=== PATIENT | male | born 1960 | race Caucasian/White ===

== ENCOUNTER 2019-10-11 01:51 | Emergency (ER) | payer SELFPAY ==
[~2019-10-11] VITALS: Ht 177 cm; Wt 77.0 kg
[2019-10-11] MEDS ORDERED: NS IV 1000 ML 1,000 ML IV ONE (02:05)
[2019-10-11] MEDS ORDERED: LACTATED RINGERS 1,000 ML IV ONE (02:10)
[2019-10-11 02:16] LABS: BASOPHILS # (AUTO) 0.1 10^3/uL (0.0-0.1); BASOPHILS % (AUTO) 1 % (0-10); EOSINOPHILS % (AUTO) 0 % (0-10); HEMATOCRIT 48 % (40-54); HEMOGLOBIN 16.6 G/DL (13.3-17.7); LYMPHOCYTES # (AUTO) 1.2 X 10^3 (1.0-4.0); LYMPHOCYTES % (AUTO) 18 % (12-44); MEAN CORPUSCULAR HEMOGLOBIN 34 PG (25-34); MEAN CORPUSCULAR HGB CONC 35 G/DL (32-36); MEAN CORPUSCULAR VOLUME 96 FL (80-99); MEAN PLATELET VOLUME 10.1 FL (7.4-10.4); MONOCYTES # (AUTO) 0.6 X 10^3 (0.0-1.0); MONOCYTES % (AUTO) 9 % (0-12); NEUTROPHILS % (AUTO) 72 % (42-75); PLATELET COUNT 162 10^3/uL (130-400)
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
[2019-10-11 02:31] LABS: ALANINE AMINOTRANSFERASE 100 U/L (0-55); ALBUMIN 4.6 GM/DL (3.2-4.5); ALKALINE PHOSPHATASE 61 U/L (40-136); BILIRUBIN,TOTAL 1.4 MG/DL (0.1-1.0); BUN/CREATININE RATIO 11; CALCIUM 9.2 MG/DL (8.5-10.1); CARBON DIOXIDE 21 MMOL/L (21-32); CHLORIDE 101 MMOL/L (98-107); CREATININE SERUM 0.76 MG/DL (0.60-1.30); GFR ESTIMATED > 60; GLUCOSE 98 MG/DL (70-105); SODIUM 141 MMOL/L (135-145); TOTAL PROTEIN 7.7 GM/DL (6.4-8.2)
[2019-10-11 03:27] VITALS: BP 123/74
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
== END 2019-10-11 03:33 | disposition home or self-care (01) ==
LOC: ER 01:54
DX: S09.90XA Unspecified injury of head, initial encounter (principal); S50.12XA Contusion of left forearm, initial encounter; F10.129 Alcohol abuse with intoxication, unspecified; B35.4 Tinea corporis; J43.9 Emphysema, unspecified; F17.210 Nicotine dependence, cigarettes, uncomplicated; Y90.6 Blood alcohol level of 120-199 mg/100 ml; Y08.02XA Assault by strike by baseball bat, initial encounter
CPT/HCPCS: 36415; 70450; 72125; 73090; 80053; 80320; 83735; 85025; 96360

== ENCOUNTER 2019-10-18 05:34 | Emergency (ER) | payer SELFPAY ==
[~2019-10-18] VITALS: Ht 175 cm; Wt 77.0 kg
[2019-10-18] MEDS ORDERED: RX-GENTAMICIN SULFATE 0.3% OP 5 ML BTL OP STA (05:49)
[2019-10-18] MEDS ORDERED: FLUCONAZOLE 150 MG TABLET (ED ONLY) PO STA (05:49)
[2019-10-18] MEDS ORDERED: BETAMETHASONE/CLOTRIM CREAM (LOTRISONE) 45 GM TP ONE (05:53)
[2019-10-18] MEDS ORDERED: LIDOCAINE 1% INJ 20 ML 20 ML VIAL INJ ONE (06:00)
[2019-10-18] MEDS ORDERED: cefTRIAXone 1,000 MG/2.86 ml vial (IM ONLY) IM ONE (06:00)
[2019-10-18] MEDS ORDERED: CEPH-507 PO (06:07)
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
[2019-10-18 06:10] VITALS: BP 140/86
[2019-10-18] MEDS ORDERED: BETAMETHASONE/CLOTRIM CREAM (LOTRISONE) 45 GM TP SCH (09:00)
== END 2019-10-18 06:22 | disposition home or self-care (01) ==
LOC: EDUNIT# 05:40 → ER 05:45
DX: H10.9 Unspecified conjunctivitis (principal); L30.9 Dermatitis, unspecified; B35.4 Tinea corporis; J43.9 Emphysema, unspecified; F17.210 Nicotine dependence, cigarettes, uncomplicated
CPT/HCPCS: 96372; 99284

== ENCOUNTER 2021-08-27 09:17 | Inpatient (IN) | payer MEDICARE ==
[~2021-08-27] VITALS: Ht 175 cm; Wt 78.3 kg
[~2021-08-27 09:17] MED LIST: CEPH-507 PO
--- OUTSIDE RECORDS SUMMARY | 2021-08-27 09:21 | XMS REPORT | Clinical Summary ---
Author Author [facility] Address Unknown Phone Unavailable Care Team Providers Care Crutcher Helper Name Role Phone Therese Cuellar REFRIGERATOR GLAZIER PCP Allergies No known active allergies Medications End Date Status Medication Sig Dispensed Refills Start Date Active albuterol (PROVENTIL HFA) inhale 2 puff 0 03/22 108 (90 BASE) MCG/ACT by inhalation 3 inhaler route every 4 - 6 hours as needed for SOB-Dr Cuellar Active albuterol-ipratropium inhale 3 0 08/07/20 1 (DUONEB) 0.5-2.5 (3) milliliter by 2 MG/3ML SOLN nebulizer nebulization solution route every 4- 6 hours as needed for shortness of breath Active paliperidone (INVEGA) 6 take 2 0 MG 24 hr tablet tablets by 3 oral route every day in the morning-Dr Cuellar Active triamcinolone (KENALOG) apply by 0 0.1 % cream topical route 3 2 times every day a thin layer to the abdominal lesion-Dr cuellar Active magnesium hydroxide (MILK take 30 0 03/22 OF MAGNESIA) 400 MG/5ML milliliter by 3 suspension oral route every day as needed, followed by a full glass (8 oz) of liquid Dr Cuellar Active citalopram (CELEXA) 20 MG take 1 10/22 0 03/22 tablet tablet by 3 oral route every day-Therese Cuellar Active loratadine (CLARITIN) 10 take 1 tablet 0 04/10 MG tablet (10MG) by 3 oral route every day-Therese Cuellar Active ibuprofen (ADVIL,MOTRIN) take 1 tablet 0 04/10 800 MG tablet (800MG) by 3 ORAL route every 8 hours as needed for generalized pain-Therese Cuellar Active fluticasone (FLONASE) 50 inhale 2 0 08/07 MCG/ACT nasal spray spray by 2 Intranasal route every day in each nostril-Therese Cool Active Nebulizers (COMP-AIR Use with 0 ELITE COMPACT NEB) MISC duoneb 2 Active doxycycline (VIBRAMYCIN) take 1 14 0 1 100 MG capsule capsule 2 (100MG) by oral route 2 times every day x's 7 days Active omeprazole (PRILOSEC) 20 take 1 0 04/10 MG capsule capsule 3 (20MG) by oral route every day in the morning-Therese Cuellar Active traZODone (DESYREL) 100 take 2 tablet 0 MG tablet (200MG) by 3 oral route every day at bedtime Active quetiapine (SEROQUEL) 400 take 1 tablet 0 /2 MG tablet (400MG) by 3 oral route at bedtime-Dr Cuellar Active tiotropium (SPIRIVA inhale 1 0 HANDIHALER) 18 MCG capsule 3 inhalation capsule (18MCG) by inhalation route every day- Dr Chu Active zolpidem (AMBIEN) 5 MG Take 5 mg by 0 tablet mouth nightly as needed for Sleep. Active bisacodyl (DULCOLAX) 10 Place 10 mg 0 MG suppository rectally daily. As needed for constipation Active busPIRone (BUSPAR) 10 MG Take 10 mg by 0 tablet mouth morning and 7 hours later. Give 2 tabs total 20 mg. Bid anxiety Active fluPHENAZine (PROLIXIN) 5 Take 5 mg by 0 MG tablet mouth daily. Active paliperidone palmitate Inject 156 mg 0 (INVEGA SUSTENA) 117 into the MG/0.75ML SUSP injection muscle once. Inject 1 syringe IM one time a day starting on the . And ending on the . For schizophrena Active alum & mag Take 15 mLs 0 hydroxide-simethicone by mouth (MYLANTA) 200-200-20 every 6 (six) MG/5ML SUSP hours as needed (indigestion, nausea). Active MV-Min-Fe Take by 0 Fum-FA-DHA ( 1 mouth. PO) Active Dextromethorphan-Guaifene Take 5 mLs by 0 sin (ROBITUSSIN DM PO) mouth every 4 (four) hours as needed. Cough wheezing Active calcium carbonate (TUMS) Take 1 tablet 0 500 MG chewable tablet by mouth every 6 (six) hours as needed for Heartburn. Heartburn indigestion Active acetaminophen (TYLENOL) Take 650 mg 0 325 MG tablet by mouth every 4 (four) hours as needed for Pain. Active fluticasone-salmeterol Inhale 1 puff 0 01 (ADVAIR) 250-50 MCG/DOSE into the 4 AEPB lungs 2 (two) times daily. 500-50 mcg/dose i puff bid Active Problems Problem Noted Date Schizoaffective disorder 12/13/2016 COPD (chronic obstructive pulmonary disease) 017 Alcoholism 12/13/2016 Alcoholic cirrhosis of liver 12/13/2016 Immunizations Name Administration Dates Next Due Influenza IIV3 PFree 08/13/2012 Social History Date Tobacco Use Types Packs/Day Years Used Current Every Day Smoker Cigarettes 0.5 Smokeless Tobacco: Chew Current User Comments: Smoking History Packs/day: 1.0 0 Comments Alcohol Use Standard Drinks/Week Alcoholic Drinks/day: Yes// No 0 (1 standard drink = 0.6 o z pure alcohol) Sex Assigned at Date Recorded Not on file Last Filed Vital Signs Reading Time Taken Comments Vital Sign 120/70 10/28/2014 12:46 PM LICENSED MIDWIFE Blood Pressure 72 10/28/2014 12:46 PM LICENSED MIDWIFE Pulse - - Temperature 14 10/28/2014 12:46 PM LICENSED MIDWIFE Respiratory Rate - - Oxygen Saturation - - Inhaled Oxygen Concentration 81.6 kg (180 lb) 10/28/2014 12:46 PM LICENSED MIDWIFE Weight 176 cm (5' 9.29") 10/28/2014 12:46 PM LICENSED MIDWIFE Height 26.36 10/28/2014 12:46 PM LICENSED MIDWIFE Body Mass Index Plan of Treatment Health Maintenance Due Date Last Done Comments COVID-19 Vaccine (1) 1971 Annual Wellness Visit 1977 DTaP,Tdap,and Td Vaccines 1978 (1 - Tdap) MMR Vaccines-Adult 1978 Colon Cancer Screening 2009 Zoster Vaccine (1 of 2) 2009 Influenza Vaccine (#1) 2021 08/13/2012 Pneumo-Vaccine: 65+Yrs (1 02/19/2024 of 1 - PPSV23) HIB Vaccines Aged Out No longer eligible based on patient's age to complete this topic IPV Vaccines Aged Out No longer eligible based on patient's age to complete this topic Meningococcal Vaccine Aged Out No longer eligib le based on patient's age to complete this topic Pneumo-Vaccine: Peds (0-5 Aged Out No longer el igible based on patient's age to Yrs) & At-Risk Patients complete this topic (6-64 Yrs) Rotavirus Vaccines Aged Out No longer eligible based on patient's age to complete this topic Results Not on filefrom Last 3 Months Insurance Type Payer Benefit Subscriber ID Effective Phone Address Plan / Dates Group Medicare MEDICARE MEDICARE [id number] 2004-P [address] [place] [address] [place] [id number] 2013-P [phone] PO [employer] [facility] [address] [place] [address] Advance Directives For more information, please contact: [phone] Patient Litigation Associate Explanation Type Date Recorded Advance Directives and Living Will Advance Directives and Living Will Power of Machine Sign Writer Power of Machine Sign Writer Care Teams Start Date End Date Crutcher Helper Relationship Specialty 05/02/16 Therese Cuellar, REFRIGERATOR GLAZIER PCP - General Nurse [address] [place] [address]
[2021-08-27 09:45] LABS: BASOPHILS % (AUTO) 1 % (0-10); EOSINOPHILS % (AUTO) 0 % (0-10); HEMATOCRIT 52 % (40-54); HEMOGLOBIN 18.5 g/dL (13.3-17.7); LYMPHOCYTES # (AUTO) 1.4 10^3/uL (1.0-4.0); LYMPHOCYTES % (AUTO) 21 % (12-44); MEAN CORPUSCULAR HEMOGLOBIN 33 pg (25-34); MEAN CORPUSCULAR HGB CONC 36 g/dL (32-36); MEAN CORPUSCULAR VOLUME 92 fL (80-99); MONOCYTES # (AUTO) 0.3 10^3/uL (0.0-1.0); MONOCYTES % (AUTO) 5 % (0-12); NEUTROPHILS # (AUTO) 4.8 10^3/uL (1.8-7.8); NEUTROPHILS % (AUTO) 73 % (42-75); PLATELET COUNT 267 10^3/uL (130-400); WHITE BLOOD COUNT 6.6 10^3/uL (4.3-11.0)
[2021-08-27] MEDS ORDERED: fentaNYL INJ 100 MCG/2 ML AMP IVP ONE (09:45)
[2021-08-27 10:06] LABS: ALANINE AMINOTRANSFERASE 70 U/L (0-55); ALBUMIN 4.9 GM/DL (3.2-4.5); ALKALINE PHOSPHATASE 64 U/L (40-136); BILIRUBIN,TOTAL 1.1 MG/DL (0.1-1.0); BUN/CREATININE RATIO 9; CALCIUM 9.2 MG/DL (8.5-10.1); CARBON DIOXIDE 21 MMOL/L (21-32); CHLORIDE 96 MMOL/L (98-107); GFR ESTIMATED 98; GLUCOSE 119 MG/DL (70-105); LIPASE 47 U/L (8-78); POTASSIUM 3.9 MMOL/L (3.6-5.0); SODIUM 134 MMOL/L (135-145); TOTAL PROTEIN 8.4 GM/DL (6.4-8.2)
[2021-08-27] MEDS ORDERED: IOHEXOL 350 MG/ML 100 ML (OMNIPAQUE 350) VIAL IV ONE (10:30)
[2021-08-27] MEDS ORDERED: ONDANSETRON 4 MG/2 ML (SDV) Z0FRAN IVP ONE (10:30)
[2021-08-27] MEDS ORDERED: HOLD METFORMIN - RECEIVED CONTRAST 20 ML VIAL IV SCH (10:30)
[2021-08-27] MEDS ORDERED: NS 100 ML (IVPB) BAG IV ONE (10:30)
[2021-08-27] MEDS ORDERED: LACTATED RINGERS 1,000 ML IV ONE (10:30)
--- NOTE | 2021-08-27 11:14 | Diagnostic Imaging Report ---
PROCEDURE: CT abdomen and pelvis with contrast. TECHNIQUE: Multiple contiguous axial images were obtained through the abdomen and pelvis after administration of intravenous contrast. Auto Exposure Controls were utilized during the CT exam to meet ALARA standards for radiation dose reduction. All CT scans use one or more of the following dose optimizing techniques: automated exposure control, MA and/or KvP adjustment based on patient size and exam type or iterative reconstruction. INDICATION: Abdominal pain, nausea COMPARISON: None available. FINDINGS: Mild emphysematous changes within the lung bases. Tiny hiatal hernia. The liver demonstrates diffusely decreased density throughout. The liver demonstrates a mildly nodular contour. Indeterminate 1.5 cm hypodensity is identified within the right hepatic lobe. The liver is otherwise unremarkable. Calcified splenic granuloma. Otherwise, the spleen is unremarkable. A splenule is present. The adrenal glands are unremarkable. The pancreas is unremarkable. The common bile duct is mildly dilated measuring near 8 mm in maximal dimension. No intrahepatic biliary dilatation. The gallbladder is unremarkable. No pancreatic ductal dilatation. The kidneys are unremarkable. Moderate vascular calcifications within the abdominal aorta and its branch vessels without aneurysmal dilatation of the abdominal aorta. Small fat-containing umbilical hernia. The urinary bladder is unremarkable. No bowel obstruction or pneumatosis. The colon is predominantly decompressed. No stuffy and adenopathy, free air, or free fluid within the abdomen or pelvis. No acute osseous abnormality with mild scattered osseous degenerative changes. IMPRESSION: Hypodense appearance of the liver with associated nodular contour. This suggests possible underlying chronic liver disease and cirrhosis. There is however an indeterminate 1.5 cm hypodensity within the right hepatic lobe. This is not completely characterized on this examination. Although this could simply relate to a cyst or hemangioma, other mass lesion is not excluded. Recommend a CT or MRI non-emergently of the abdomen using hepatic mass protocol with and without contrast if no prior imaging is available to demonstrate multiple years of stability for this hypodensity. Mild dilatation of the common bile duct. No definite intrahepatic biliary dilatation on this exam. Exact etiology is unclear, though could simply relate to patient's age. Recommend correlation with laboratory values to evaluate for underlying biliary obstruction. Additional findings as described above. Dictated by: Dictated on workstation # [id number]
[2021-08-27 11:57] LABS: BILIRUBIN,URINE NEGATIVE (NEGATIVE); CLARITY,URINE SL CLOUDY; COLOR,URINE YELLOW; GLUCOSE, URINE (UA) NEGATIVE (NEGATIVE); KETONES,URINE TRACE (NEGATIVE); LEUKOCYTE ESTERASE ,URINE NEGATIVE (NEGATIVE); NITRITE,URINE NEGATIVE (NEGATIVE); PH,URINE 6.5 (5-9); PROTEIN,URINE 1+ (NEGATIVE)
[2021-08-27 12:15] LABS: AMPHETAMINE SCREEN, URINE NEGATIVE (NEGATIVE); BARBITURATE SCREEN URINE NEGATIVE (NEGATIVE); BENZODIAZEPINES SCREEN URINE NEGATIVE (NEGATIVE); CANNABINOID SCREEN, URINE NEGATIVE (NEGATIVE); COCAINE SCREEN URINE NEGATIVE (NEGATIVE); METHADONE STAT NEGATIVE (NEGATIVE); METHAMPHETAMINE SCREEN URINE S NEGATIVE (NEGATIVE); OPIATE SCREEN URINE NEGATIVE (NEGATIVE); OXYCODONE STAT NEGATIVE (NEGATIVE); PROPOXYPHENE STAT NEGATIVE (NEGATIVE); TRICYCLIC ANTIDEPRESSANTS SCRE NEGATIVE (NEGATIVE)
[2021-08-27 12:18] LABS: BACTERIA,URINE NEGATIVE /HPF; RBC,URINE 0-2 /HPF; SQUAMOUS EPITHELIAL CELL,UR 0-2 /HPF
[2021-08-27] MEDS ORDERED: LORazepam INJ 2 MG/ML (ATIVAN) VIAL IVP ONE (13:00)
[2021-08-27] MEDS ORDERED: morphine INJ 10 MG/ML 1ML (SYR OR VIAL) IVP STA (13:00)
[2021-08-27 14:44] LABS: INR 1.1 (0.8-1.4); PROTHROMBIN TIME PATIENT 14.9 SEC (12.2-14.7)
--- NOTE | 2021-08-27 15:06 | CONSULTATION REPORT ---
DATE OF SERVICE: HISTORY OF PRESENT ILLNESS: The patient is a 61-year-old male who presented to the Emergency Department with pain in the bilateral lower abdominal quadrants. He does have a history of alcoholism and has currently been drinking with alcohol level of 0.130. He reports that the pain came on this morning. He does not report any nausea or vomiting as well as no fever, no chills. A CT scan was performed, which showed changes consistent with liver cirrhosis. There was a 1.5 cm lesion, which may indicate a hemangioma; however, with his history of liver cirrhosis as well as hepatitis C, at some point, he may need further imaging with MRI to rule out the potential for hepatocellular carcinoma. His laboratory work is normal. He will be admitted and medically managed and our recommendation is to proceed with serial abdominal examinations as well as follow up laboratory work. PAST MEDICAL HISTORY: Alcoholism, alcohol abuse. PAST MEDICAL HISTORY: Gastroesophageal reflux disease. PAST SURGICAL HISTORY: None. ALLERGIES: No known drug allergies. MEDICATIONS: Cephalexin 500 mg q.i.d. SOCIAL HISTORY: Previous smoke, significant alcohol use on a daily basis. FAMILY HISTORY: Noncontributory. VITAL SIGNS: Temperature 37.2, blood pressure 133/77, pulse 86, respirations 14, pulse ox 98% on room air. REVIEW OF SYSTEMS: Well-nourished male in no acute distress. He is not experiencing any shortness of breath or difficulty breathing. No chest pain, palpitations, diaphoresis. No nausea, vomiting with crampy abdominal quadrant crampy pain. No peritoneal signs. No hernias. No known diarrhea, no red blood per rectum, no dark tarry stools. No fever, chills, no recent inadvertent weight loss. PHYSICAL EXAMINATION: CHEST: A few scattered rales bilaterally. HEART: Regular, no murmurs. EXTREMITIES: No lower extremity edema, negative Homans sign. HEENT: No scleral icterus. NECK: No cervical lymphadenopathy. ABDOMEN: Soft, nondistended. There is pain in the bilateral lower abdominal quadrants; however, there is no localized pain. No hernias. SKIN: Warm, dry. LABORATORY DATA: WBC 6.6, hemoglobin 18.5, hematocrit 52, platelets 267. BUN 7, creatinine 0.80. Alcohol is 0.132. ASSESSMENT AND PLAN: A 61-year-old male with lower quadrant abdominal pain. CT scan did not show any abnormalities, only a hypodense area of the liver, 1.5 cm in size of the right lobe of the liver. There were also changes of liver cirrhosis. RECOMMENDATIONS: At this time is conservative management with a clear liquid diet as well as serial labs and physical examinations. If his pain which became more localized, worse in severity, we will repeat the CT scan of the abdomen and pelvis. With his history of alcohol use, we will also start him on a PPI acid executive services administrator IV on a b.i.d. basis. Job ID: [id number] DocumentID: [id number] Dictated Date: 08/27/2021 14:50:18 Marketing Account Executive Date: 08/27/2021 15:05:30 Dictated By: RONALD BARNES MD
--- NOTE | 2021-08-27 15:49 | ED Abdominal Pain ---
General Chief Complaint: Abdominal/GI Problems Stated Complaint: GENERALIZED ABD PAIN,ALCOHOL DEP Nursing Triage Note: PATIENT REPORTS HE WAS DRINKING YESTERDAY, WOKE UP WITH SEVERE RLQ ABD PAIN. Source of Information: Patient Exam Limitations: No Limitations History of Present Illness Date Seen by Provider: Aug 27, 2021 Time Seen by Provider: 09:18 Initial Comments This 61-year-old gentleman presents to the emergency room via EMS with ge neralized abdominal pain most concentrated in the right lower quadrant that started upon waking this morning around 0500. He denies any nausea or vomiting, constipation, or diarrhea. He is quite uncomfortable and feels rather agitated. He admits to drinking alcohol daily with his last consumption last night. He is afebrile. He denies any other symptoms of acute infectious illness such as fever, cough, or shortness of breath. He denies having any pain like this in the past. Allergies and Home Medications Allergies Coded Allergies: No Known Drug Allergies (Unverified , 10/11/19) Patient Home Medication List Home Medication List Reviewed: Yes Cephalexin (Keflex) 500 Mg Capsule, 500 MG PO QID Prescribed by: NADIRA WASSERMAN on 10/18/19 0607 Review of Systems Review of Systems Constitutional: no symptoms reported EENTM: No Symptoms Reported Respiratory: No Symptoms Reported Cardiovascular: No Symptoms Reported Gastrointestinal: See HPI Genitourinary: No Symptoms Reported Musculoskeletal: no symptoms reported Skin: no symptoms reported Psychiatric/Neurological: See HPI Endocrine: No Symptoms Reported Hematologic/Lymphatic: No Symptoms Reported Past Xkrpfhk-Skvwaa-Ezurby Hx Patient Social History Tobacco Use?: No Substance use?: No Alcohol Use?: Yes Alcohol Frequency: Daily Immunizations Up To Date Tetanus Booster (TDap): Unknown PED Vaccines UTD: Yes Influenza Vaccine Up-to-Date: No; Not Current First/Initial COVID19 Vaccinat: 0 Second COVID19 Vaccination Luis: 0 Third COVID19 Vaccination Date: 0 COVID19 Vaccine Propeller Driven Airplane Mechanic: 0 Seasonal Allergies Seasonal Allergies: No Past Medical History Surgeries: No Respiratory: Yes COPD, Emphysema Cardiac: No Neurological: No Genitourinary: No Gastrointestinal: No Musculoskeletal: No Endocrine: No HEENT: No Cancer: No Psychosocial: Yes Integumentary: Yes Recent Skin Changes Blood Disorders: No Adverse Reaction/Blood Tranf: No Physical Exam Vital Signs Vital Signs - First Documented 08/27/21 08/27/21 09:58 12:48 Temp 37.2 Pulse 93 Resp 14 B/P (MAP) 118/104 (109) Pulse Ox 98 Capillary Refill : Less Than 3 Seconds Height/Weight/BMI Height: '" Weight: lbs. oz. 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, no motor/sensory deficits, alert, oriented x 3, other (Agitated) Skin: normal color, warm/dry Progress/Results/Core Measures Results/Orders Lab Results Laboratory Tests Test 08/27/21 09:35 08/27/21 11:19 Range/Units White Blood Count 6.6 4.3-11.0 10^3/uL Red Blood Count 5.67 H 4.30-5.52 10^6/uL Hemoglobin 18.5 H 13.3-17.7 g/dL Hematocrit 52 40-54 % Mean Corpuscular Volume 92 80-99 fL Mean Corpuscular Hemoglobin 33 25-34 pg Mean Corpuscular Hemoglobin Concent 36 32-36 g/dL Red Cell Distribution Width 12.5 10.0-14.5 % Platelet Count 267 130-400 10^3/uL Mean Platelet Volume 10.0 9.0-12.2 fL Immature Granulocyte % (Auto) 0 % Neutrophils (%) (Auto) 73 42-75 % Lymphocytes (%) (Auto) 21 12-44 % Monocytes (%) (Auto) 5 0-12 % Eosinophils (%) (Auto) 0 0-10 % Basophils (%) (Auto) 1 0-10 % Neutrophils # (Auto) 4.8 1.8-7.8 10^3/uL Lymphocytes # (Auto) 1.4 1.0-4.0 10^3/uL Monocytes # (Auto) 0.3 0.0-1.0 10^3/uL Eosinophils # (Auto) 0.0 0.0-0.3 10^3/uL Basophils # (Auto) 0.0 0.0-0.1 10^3/uL Immature Granulocyte # (Auto) 0.0 0.0-0.1 10^3/uL Prothrombin Time 14.9 H 12.2-14.7 SEC INR Comment 1.1 0.8-1.4 Sodium Level 134 L 135-145 MMOL/L Potassium Level 3.9 3.6-5.0 MMOL/L Chloride Level 96 L 98-107 MMOL/L Carbon Dioxide Level 21 21-32 MMOL/L Anion Gap 17 H 5-14 MMOL/L Blood Urea Nitrogen 7 7-18 MG/DL Creatinine 0.80 0.60-1.30 MG/DL Estimat Glomerular Filtration Rate 98 BUN/Creatinine Ratio 9 Glucose Level 119 H 70-105 MG/DL Calcium Level 9.2 8.5-10.1 MG/DL Corrected Calcium 8.5-10.1 MG/DL Total Bilirubin 1.1 H 0.1-1.0 MG/DL Aspartate Amino Transf (AST/SGOT) 87 H 5-34 U/L Alanine Aminotransferase (ALT/SGPT) 70 H 0-55 U/L Alkaline Phosphatase 64 40-136 U/L C-Reactive Protein High Sensitivity 0.02 0.00-0.50 MG/DL Total Protein 8.4 H 6.4-8.2 GM/DL Albumin 4.9 H 3.2-4.5 GM/DL Lipase 47 8-78 U/L Serum Alcohol 132 H <10 MG/DL Urine Color YELLOW Urine Clarity SL CLOUDY Urine pH 6.5 5-9 Urine Specific Fries 1.010 L 1.016-1.022 Urine Protein 1+ H NEGATIVE Urine Glucose (UA) NEGATIVE NEGATIVE Urine Ketones TRACE H NEGATIVE Urine Nitrite NEGATIVE NEGATIVE Urine Bilirubin NEGATIVE NEGATIVE Urine Urobilinogen 0.2 < = 1.0 MG/DL Urine Leukocyte Esterase NEGATIVE NEGATIVE Urine RBC (Auto) 1+ H NEGATIVE Urine RBC 0-2 /HPF Urine WBC NONE /HPF Urine Squamous Epithelial Cells 0-2 /HPF Urine Crystals NONE /LPF Urine Bacteria NEGATIVE /HPF Urine Casts NONE /LPF Urine Mucus SMALL H /LPF Urine Culture Indicated NO Urine Opiates Screen NEGATIVE NEGATIVE Urine Oxycodone Screen NEGATIVE NEGATIVE Urine Methadone Screen NEGATIVE NEGATIVE Urine Propoxyphene Screen NEGATIVE NEGATIVE Urine Barbiturates Screen NEGATIVE NEGATIVE Ur Tricyclic Antidepressants Screen NEGATIVE NEGATIVE Urine Phencyclidine Screen NEGATIVE NEGATIVE Urine Amphetamines Screen NEGATIVE NEGATIVE Urine Methamphetamines Screen NEGATIVE NEGATIVE Urine Benzodiazepines Screen NEGATIVE NEGATIVE Urine Cocaine Screen NEGATIVE NEGATIVE Urine Cannabinoids Screen NEGATIVE NEGATIVE My Orders Orders - NADIRA OAKLEY MD Fentanyl Inj (Sublimaze Injection) (08/27/21 09:45) Alcohol (08/27/21 09:34) Cbc With Automated Diff (08/27/21 09:34) Comprehensive Metabolic Panel (08/27/21 09:34) Hs C Reactive Protein (08/27/21 09:34) Drug Screen Stat (Urine) (08/27/21 09:34) Lipase (08/27/21 09:34) Ua Culture If Indicated (08/27/21 09:34) Ed Iv/Invasive Line Start (08/27/21 09:34) Lactated Ringers (Lr 1000 Ml Iv Solution (08/27/21 10:30) Ct Abdomen/Pelvis W (08/27/21 10:23) Ondansetron Injection (Zofran Injectio (08/27/21 10:30) Iohexol Injection (Omnipaque 350 Mg/Ml 1 (08/27/21 10:30) Received Contrast (Hold Metformin- Contr (08/27/21 10:30) Ns (Ivpb) (Sodium Chloride 0.9% Ivpb Bag (08/27/21 10:30) Morphine Injection (Morphine Injection (08/27/21 13:00) Lorazepam Injection (Ativan Injection) (08/27/21 13:00) Protime With Inr (08/27/21 14:34) Medications Given in ED Current Medications Medications Dose Ordered Sig/[place] Route Start Time Stop Time Status Last Admin Dose Admin Fentanyl Citrate 50 mcg ONCE ONCE IVP 08/27/21 09:45 08/27/21 09:46 DC 08/27/21 09:52 50 MCG Iohexol 100 ml ONCE ONCE IV 08/27/21 10:30 08/27/21 10:31 DC 08/27/21 10:52 100 ML Lactated Ringer's 1,000 ml @ 0 mls/hr Q0M ONCE IV 08/27/21 10:30 08/27/21 10:31 DC 08/27/21 10:30 999 MLS/HR Lorazepam 0.5 mg ONCE ONCE IVP 08/27/21 13:00 08/27/21 13:01 DC 08/27/21 13:09 0.5 MG Ondansetron HCl 4 mg ONCE ONCE IVP 08/27/21 10:30 08/27/21 10:31 DC 08/27/21 10:29 4 MG Sodium Chloride 100 ml ONCE ONCE IV 08/27/21 10:30 08/27/21 10:31 DC 08/27/21 10:52 80 ML Vital Signs/I&O 08/27/21 08/27/21 08/27/21 08/27/21 09:58 11:25 12:48 13:43 Temp 37.2 37.4 37.2 37.1 Pulse 93 86 Resp 14 B/P (MAP) 118/104 (109) 138/84 140/90 133/77 Pulse Ox 98 Blood Pressure Mean: 104 Progress Progress Note : Progress Note Patient was initially treated with fentanyl. Work-up did not reveal any specific lab abnormalities. Work-up continued with CT of the abdomen and pelvis. There was a nonspecific liver lesion identified and the radiology report recommended further evaluation with MRI or liver protocol CT. patient developed nausea and was treated with Zofran. Pain was further treated with morphine. Patient was thought to likely be developing some withdrawal and was given Ativan 0.5 mg IV. This did seem to calm him tremendously. I discussed the subtleties of this case with Dr. Peter. He agrees with admission for observation overnight due to the intensity of his pain. Repeat imaging with a CT liver protocol will be obtained. I discussed CODE STATUS with the patient and he elects to be full code. Diagnostic Imaging Diagonstic Imaging: CT Plain Films/CT/US/NM/MRI: abdomen, pelvis Comments CT abdomen pelvis viewed by me and report reviewed. See report below: NAME: [facility] REC#: [id number] PT STATUS: REG ER : 1960 PHYSICIAN: NADIRA OAKLEY MD ADMIT DATE: 08/27/21/ER Signed Date of Exam:08/27/21 CT ABDOMEN/PELVIS W PROCEDURE: CT abdomen and pelvis with contrast. TECHNIQUE: Multiple contiguous axial images were obtained through the abdomen and pelvis after administration of intravenous contrast. Auto Exposure Controls were utilized during the CT exam to meet ALARA standards for radiation dose reduction. All CT scans use one or more of the following dose optimizing techniques: automated exposure control, MA and/or KvP adjustment based on patient size and exam type or iterative reconstruction. INDICATION: Abdominal pain, nausea COMPARISON: None available. FINDINGS: Mild emphysematous changes within the lung bases. Tiny hiatal hernia. The liver demonstrates diffusely decreased density throughout. The liver demonstrates a mildly nodular contour. Indeterminate 1.5 cm hypodensity is identified within the right hepatic lobe. The liver is otherwise unremarkable. Calcified splenic granuloma. Otherwise, the spleen is unremarkable. A splenule is present. The adrenal glands are unremarkable. The pancreas is unremarkable. The common bile duct is mildly dilated measuring near 8 mm in maximal dimension. No intrahepatic biliary dilatation. The gallbladder is unremarkable. No pancreatic ductal dilatation. The kidneys are unremarkable. Moderate vascular calcifications within the abdominal aorta and its branch vessels without aneurysmal dilatation of the abdominal aorta. Small fat-containing umbilical hernia. The urinary bladder is unremarkable. No bowel obstruction or pneumatosis. The colon is predominantly decompressed. No stuffy and adenopathy, free air, or free fluid within the abdomen or pelvis. No acute osseous abnormality with mild scattered osseous degenerative changes. IMPRESSION: Hypodense appearance of the liver with associated nodular contour. This suggests possible underlying chronic liver disease and cirrhosis. There is however an indeterminate 1.5 cm hypodensity within the right hepatic lobe. This is not completely characterized on this examination. Although this could simply relate to a cyst or hemangioma, other mass lesion is not excluded. Recommend a CT or MRI non-emergently of the abdomen using hepatic mass protocol with and without contrast if no prior imaging is available to demonstrate multiple years of stability for this hypodensity. Mild dilatation of the common bile duct. No definite intrahepatic biliary dilatation on this exam. Exact etiology is unclear, though could simply relate to patient's age. Recommend correlation with laboratory values to evaluate for underlying biliary obstruction. Additional findings as described above. Dictated by: Dictated on workstation # [id number] Dict: 08/27/21 1100 Trans: 08/27/21 1135 [facility] [id number] Interpreted by: EDDIE GARZA MD Electronically signed by: EDDIE GARZA MD 08/27/21 1135 Departure Communication (Admissions) Time/Spoke to Admitting Phy: 14:00 Dr. Marks Time/Spoke to Consulting Phy: 13:00 Dr. Brittani Manuel Primary Impression: Generalized abdominal pain Additional Impressions: Liver lesion Alcohol dependence Qualified Codes: F10.29 - Alcohol dependence with unspecified alcohol- induced disorder Disposition: ADMITTED INPATIENT Condition: Improved Admissions Decision to Admit Reason: Admit from ER (General) Decision to Admit/Date: Aug 27, 2021 Time/Decision to Admit Time: 13:00 Departure-Patient Inst. Referrals: NO,LOCAL PHYSICIAN (PCP/Family) Primary Care Physician NADIRA OAKLEY MD Aug 27, 2021 15:49
[2021-08-27] MEDS ORDERED: morphine INJ 10 MG/ML 1ML (SYR OR VIAL) IV PRN (16:15)
[2021-08-27] MEDS ORDERED: CATHETER FLUSH 10 ML SYR IV PRN (16:15)
[2021-08-27] MEDS ORDERED: ONDANSETRON 4 MG/2 ML (SDV) Z0FRAN IV PRN ×2 (16:15→16:45)
[2021-08-27] MEDS ORDERED: 1/2 NS IV SOLUTION 1,000 ML IV PRN (16:45)
[2021-08-27] MEDS ORDERED: LORazepam INJ 2 MG/ML (ATIVAN) VIAL IM/IV PRN (16:45)
[2021-08-27] MEDS ORDERED: D5 1/2 NS 1000 ML IV SOLUTION 1,000 ML IV PRN (16:45)
[2021-08-27] MEDS ORDERED: SENNA W/DOCUSATE (SENOKOT S) TABLET PO PRN (16:45)
[2021-08-27] MEDS ORDERED: ONDANSETRON 4 MG (ZOFRAN) ORAL DISSOLVE TAB SL PRN (16:45)
[2021-08-27] MEDS ORDERED: ANTACID SUSP 30 ML UDC (MYLANTA) PO PRN (16:45)
[2021-08-27 16:52] VITALS: BP 158/91
[2021-08-27] MEDS: LORazepam INJ 2 MG/ML (ATIVAN) VIAL IV PRN ×2 (16:57→21:21)
[2021-08-27 17:07] VITALS: BP 118/79
[2021-08-27 17:14] VITALS: BP 130/85
[2021-08-27] MEDS: THIAMINE INJECTION 100 MG, FOLIC ACID INJECTION 1 MG, MAGNESIUM SULFATE 2 GM, VITAMIN M... IV SCH ×5 (17:15)
[2021-08-27 17:28] VITALS: BP 135/79
[2021-08-27 17:42] VITALS: BP 136/79
[2021-08-27 20:00] VITALS: BP 138/80
[2021-08-27] MEDS: FAMOTIDINE 20MG/2ML IV (PEPCID) IV SCH (21:09)
[2021-08-27] MEDS: PANTOPRAZOLE 40 MG (PROTONIX) VIAL IV SCH (21:10)
[2021-08-28] VITALS: BP 143/84
[2021-08-28] MEDS: LORazepam 1 MG (ATIVAN) TAB PO PRN (00:27)
[2021-08-28] MEDS: D5 1/2 NS W/KCL 20 MEQ/L 1,000 ML IV SCH ×5 (00:27→20:41)
[2021-08-28] MEDS: LORazepam INJ 2 MG/ML (ATIVAN) VIAL IV PRN ×3 (01:33→03:11)
[2021-08-28] MEDS ORDERED: DexMEDEtomidine 250 ML DRIP 250 ML IV ONE (03:32)
[2021-08-28] MEDS ORDERED: DexMEDEtomidine 250 ML DRIP 250 ML IV SCH (03:45)
[2021-08-28 05:19] LABS: BASOPHILS % (AUTO) 1 % (0-10); EOSINOPHILS # (AUTO) 0.1 10^3/uL (0.0-0.3); EOSINOPHILS % (AUTO) 1 % (0-10); HEMATOCRIT 43 % (40-54); LYMPHOCYTES % (AUTO) 23 % (12-44); MEAN CORPUSCULAR HEMOGLOBIN 33 pg (25-34); MEAN CORPUSCULAR HGB CONC 35 g/dL (32-36); MEAN CORPUSCULAR VOLUME 95 fL (80-99); MEAN PLATELET VOLUME 10.7 fL (9.0-12.2); MONOCYTES # (AUTO) 0.3 10^3/uL (0.0-1.0); MONOCYTES % (AUTO) 7 % (0-12); NEUTROPHILS % (AUTO) 68 % (42-75); PLATELET COUNT 153 10^3/uL (130-400); WHITE BLOOD COUNT 4.4 10^3/uL (4.3-11.0)
[2021-08-28 05:28] LABS: ALBUMIN 3.5 GM/DL (3.2-4.5); POTASSIUM 3.7 MMOL/L (3.6-5.0)
[2021-08-28 05:31] LABS: TOTAL PROTEIN 5.9 GM/DL (6.4-8.2)
[2021-08-28 05:32] LABS: BILIRUBIN,TOTAL 1.5 MG/DL (0.1-1.0)
[2021-08-28 05:34] LABS: CREATININE SERUM 0.7 MG/DL (0.60-1.30); PHOSPHORUS 2.4 MG/DL (2.3-4.7)
[2021-08-28 05:37] LABS: MAGNESIUM 2.1 MG/DL (1.6-2.4)
[2021-08-28] MEDS: KCL 20 MEQ TAB (K-DUR) PO SCH (05:48)
[2021-08-28] MEDS: POTASSIUM CL 10MEQ/50ML IVPB 50 ML IV SCH (05:48)
[2021-08-28] MEDS: MAGNESIUM 1 GM/100 ML IVPB 100 ML IV SCH (05:48)
[2021-08-28] MEDS ORDERED: FLU QUADRIvalent (3YOA+) 60 mcg/0.5 ml 2021-22(AFLURIA) IM ONE (07:00)
[2021-08-28] MEDS: FAMOTIDINE 20MG/2ML IV (PEPCID) IV SCH ×2 (07:47→20:41)
[2021-08-28] MEDS: PANTOPRAZOLE 40 MG (PROTONIX) VIAL IV SCH ×2 (07:47→20:41)
--- NOTE | 2021-08-28 08:21 | History & Physical-Hospitalist ---
History of Present Illness HPI/Chief Complaint Patient is 61-year-old male with past medical history of hepatitis C, alcohol abuse, GERD who presented to the emergency department due to bilateral lower abdominal pain. He is currently quite sedate and on a Precedex drip secondary to alcohol withdrawal and is unable to provide any history. All history is obtained from the records. Per the ER note his symptoms began yesterday after drinking quite heavily. He is unable to quantify how much he drinks. CT revealed possible 1.5 cm hepatic mass. His pain could not be controlled in the emergency room and he was admitted for observation due to intractable abdominal pain and surgical consultation. Overnight he developed with drawl symptoms with CIWA scores up to 19 and was transferred to the ICU for Precedex drip. Exam Limitations: clinical condition Date Seen 08/28/21 Time Seen by a Provider: 07:45 Attending Physician Coby Marks MD PCP No,Local Physician Referring Physician Date of Admission Aug 27, 2021 at 14:35 Home Medications & Allergies Home Medications Reviewed patient Home Medication Reconciliation performed by pharmacy medication reconciliations appraisal technician and/or nursing. Patients Allergies have been reviewed. Allergies Allergies Coded Allergies No Known Drug Allergies (Xgnzamyrmg99/22/19) Past Swgoihz-Qatqoc-Rpmefk Hx Patient Social History Tobacco Use?: Yes Tobacco type used: Cigarettes Smoking Status: Current Everyday Smoker Smokeless type used: Chew Smokeless Tobacco Frequency: Current Someday User Use of E-Cig and/or Vaping dev: No Substance use?: No Alcohol Use?: Yes Alcohol type: Hard Liquor Additional alcohol type: [place] Alcohol Frequency: Daily Additional Alcohol Comments: Last drink on 11-6 Pt feels they are or have been: No Immunizations Up To Date First/Initial COVID19 Vaccinat: 0 Second COVID19 Vaccination Luis: 0 Tetanus Booster (TDap): Unknown PED Vaccines UTD: Yes Seasonal Allergies Seasonal Allergies: No Current Status Advance Directives: No Communicates: Verbally Primary Language: Turkish Preferred Spoken Language: Turkish Is interpretation needed?: No Sensory deficits: Hearing impairment Past Medical History COPD, Emphysema Hepatitis Recent Skin Changes Blood Disorders: No Adverse Reaction/Blood Tranf: No Family Medical History Reviewed Nursing Family Hx No Pertinent Family Hx Review of Systems ROS-Unable to Obtain: sedation Constitutional: see HPI Physical Exam Physical Exam Vital Signs Vital Signs - First Documented 11/05/1008/27/21 08/27/21 09:58 12:48 14:58 Temp 37.2 Pulse 93 Resp 14 B/P (MAP) 118/104 (109) Pulse Ox 98 O2 Delivery Nasal Cannula O2 Flow Rate 2.00 Capillary Refill : Less Than 3 Seconds Height, Weight, BMI Height: '" Weight: lbs. oz. kg; 26.44 BMI Method: General Appearance: No Apparent Distress, WD/WN, Other (sleeping soundly in be d, opens eyes when spoken to but very quickly goes back to sleep) HEENT: Moist Mucous Membranes; No Scleral Icterus (L), No Scleral Icterus (R) Neck: Normal Inspection, Supple Respiratory: Lungs Clear, No Accessory Muscle Use, No Respiratory Distress Cardiovascular: Regular Rate, Rhythm, No Murmur Gastrointestinal: Normal Bowel Sounds, Non Tender, Soft Extremity: Normal Capillary Refill, No Calf Tenderness, No Pedal Edema Neurologic/Psychiatric: Other (arouses briefly to verbal stimuli) Skin: Normal Color, Warm/Dry Results Results/Procedures Labs Laboratory Tests 08/27/21 09:35 08/28/21 04:40 Patient resulted labs reviewed. Imaging: Reviewed Imaging Report Imaging [facility]. [place], [place] NAME: JATIN GUZMÁN [facility] REC#: [id number] PT STATUS: REG ER : 1960 PHYSICIAN: NADIRA OAKLEY MD ADMIT DATE: 08/27/21/ER Signed Date of Exam:08/27/21 CT ABDOMEN/PELVIS W PROCEDURE: CT abdomen and pelvis with contrast. TECHNIQUE: Multiple contiguous axial images were obtained through the abdomen and pelvis after administration of intravenous contrast. Auto Exposure Controls were utilized during the CT exam to meet ALARA standards for radiation dose reduction. All CT scans use one or more of the following dose optimizing techniques: automated exposure control, MA and/or KvP adjustment based on patient size and exam type or iterative reconstruction. INDICATION: Abdominal pain, nausea COMPARISON: None available. FINDINGS: Mild emphysematous changes within the lung bases. Tiny hiatal hernia. The liver demonstrates diffusely decreased density throughout. The liver demonstrates a mildly nodular contour. Indeterminate 1.5 cm hypodensity is identified within the right hepatic lobe. The liver is otherwise unremarkable. Calcified splenic granuloma. Otherwise, the spleen is unremarkable. A splenule is present. The adrenal glands are unremarkable. The pancreas is unremarkable. The common bile duct is mildly dilated measuring near 8 mm in maximal dimension. No intrahepatic biliary dilatation. The gallbladder is unremarkable. No pancreatic ductal dilatation. The kidneys are unremarkable. Moderate vascular calcifications within the abdominal aorta and its branch vessels without aneurysmal dilatation of the abdominal aorta. Small fat-containing umbilical hernia. The urinary bladder is unremarkable. No bowel obstruction or pneumatosis. The colon is predominantly decompressed. No stuffy and adenopathy, free air, or free fluid within the abdomen or pelvis. No acute osseous abnormality with mild scattered osseous degenerative changes. IMPRESSION: Hypodense appearance of the liver with associated nodular contour. This suggests possible underlying chronic liver disease and cirrhosis. There is however an indeterminate 1.5 cm hypodensity within the right hepatic lobe. This is not completely characterized on this examination. Although this could simply relate to a cyst or hemangioma, other mass lesion is not excluded. Recommend a CT or MRI non-emergently of the abdomen using hepatic mass protocol with and without contrast if no prior imaging is available to demonstrate multiple years of stability for this hypodensity. Mild dilatation of the common bile duct. No definite intrahepatic biliary dilatation on this exam. Exact etiology is unclear, though could simply relate to patient's age. Recommend correlation with laboratory values to evaluate for underlying biliary obstruction. Additional findings as described above. Dictated by: Dictated on workstation # [id number] Dict: 08/27/21 1100 Trans: 08/27/21 1135 [facility] [id number] Interpreted by: EDDIE GARZA MD Electronically signed by: EDDIE GARZA MD 08/27/21 1135 Assessment/Plan Admission Diagnosis Intractable abdominal pain Admission Status: Observation Reason for Inpatient Admission: see below Assessment and Plan Intractable abdominal pain Surgery consulted, appreciate recs Repeat CT today with liver protocol Continue pain regimen Alcohol abuse Alcohol withdrawal Unsure of when last drink was or have much he drinks but on arrival here alchol level was still 132 CIWA protocol Precedex gtt for now Banana bag COPD No acute needs MAT protocol DVT ppx: Lovenox Diagnosis/Problems Diagnosis/Problems (1) Hepatitis (2) Alcohol withdrawal (3) COPD (chronic obstructive pulmonary disease) (4) Generalized abdominal pain Status: Acute (5) Alcohol dependence Status: Acute Qualifiers: Substance use status: unspecified alcohol-induced disorder Qualified Codes: F10.29 - Alcohol dependence with unspecified alcohol-induced disorder (6) Liver lesion Status: Acute (7) Alcohol intoxication Status: Acute COBY MARKS MD Aug 28, 2021 08:21
[2021-08-28] MEDS ORDERED: CATHETER FLUSH 10 ML SYR IV PRN (09:30)
[2021-08-28] MEDS ORDERED: IOHEXOL 350 MG/ML 100 ML (OMNIPAQUE 350) VIAL IV ONE (09:30)
[2021-08-28] MEDS ORDERED: HOLD METFORMIN - RECEIVED CONTRAST 20 ML VIAL IV SCH (09:30)
[2021-08-28] MEDS ORDERED: NS 100 ML (IVPB) BAG IV ONE (09:30)
[2021-08-28] MEDS: ENOXAPARIN 40 MG/0.4 ML (LOVENOX) SYR SQ SCH (09:49)
[2021-08-28] MEDS: THIAMINE INJECTION 100 MG, FOLIC ACID INJECTION 1 MG, MAGNESIUM SULFATE 2 GM, VITAMIN M... IV SCH ×5 (11:16)
--- NOTE | 2021-08-28 11:55 | Tele-ICU Consult ---
History of Present Illness History of Present Illness Date Seen by Provider: Aug 28, 2021 Time Seen by Provider: 11:55 Date of Admission Allergies and Home Medications Allergies Coded Allergies: No Known Drug Allergies (Unverified , 10/11/19) Home Medications Cephalexin 500 Mg Capsule, 500 MG PO QID Prescribed by: NADIRA WASSERMAN on 10/18/19 0607 Past Medical/Social/Family Hx Patient Social History Tobacco Use?: Yes Tobacco type used: Cigarettes Smoking Status: Current Everyday Smoker Smokeless type used: Chew Smokeless Tobacco Frequency: Current Someday User Use of E-Cig and/or Vaping dev: No Substance use?: No Alcohol Use?: Yes Alcohol type: Hard Liquor Additional alcohol type: [place] Alcohol Frequency: Daily Last drink on 08-26 Pt stated abuse/neglect: No Immunizations Up To Date Influenza Vaccine Up-to-Date: No; Not Current First/Initial COVID19 Vaccinat: 0 Second COVID19 Vaccination Luis: 0 Tetanus Booster (TDap): Unknown Current Status Advance Directives: No Communicates: Verbally Primary Language: [place]isian Preferred Spoken Language: Tunisian Is interpretation needed?: No Sensory deficits: Hearing impairment Review of Systems Constitutional: see HPI Sepsis Event Evaluation Height, Weight, BMI Height: '" Weight: lbs. oz. kg; 26.44 BMI Method: Exam Exam Patient acknowledged, consented, and participated in this virtual visit which was conducted using real time audio/video Vital Signs Date Time Temp Pulse Resp B/P (MAP) Pulse Ox O2 Delivery O2 Flow Rate FiO2 08/28/21 10:00 52 14 86/63 98 Nasal Cannula 2.00 08/28/21 09:00 53 14 90/63 98 Nasal Cannula 2.00 08/28/21 08:00 36.6 08/28/21 08:00 56 15 97/57 98 Nasal Cannula 2.00 08/28/21 08:00 Nasal Cannula 2.00 08/28/21 07:05 97 Nasal Cannula 2.00 08/28/21 07:00 60 08/28/21 07:00 57 21 92/60 97 Nasal Cannula 2.00 08/28/21 06:00 58 18 89/60 97 Nasal Cannula 2.00 08/28/21 05:06 Nasal Cannula 2.00 08/28/21 05:00 63 36 89/59 97 Nasal Cannula 3.00 08/28/21 04:30 66 16 90/65 97 Nasal Cannula 3.00 08/28/21 04:15 69 18 98/66 95 Nasal Cannula 3.00 08/28/21 04:13 Nasal Cannula 3.00 08/28/21 04:00 82 19 98/64 89 Room Air 08/28/21 03:45 91 21 117/72 92 Room Air 08/28/21 03:38 78 17 120/83 92 Room Air 08/28/21 03:36 74 115/88 08/28/21 03:30 86 08/28/21 03:22 37.0 74 18 115/88 98 Room Air 08/28/21 02:51 95 Room Air 08/28/21 01:00 75 08/28/21 00:00 37.1 81 16 143/84 (103) 94 Room Air 08/27/21 20:59 Room Air 08/27/21 20:00 36.9 88 20 138/80 (99) 92 Room Air 08/27/21 19:00 85 08/27/21 17:42 86 136/79 (98) 08/27/21 17:32 111 08/27/21 17:28 36.9 88 20 135/79 (97) 08/27/21 17:14 96 130/85 (100) 08/27/21 17:07 36.8 20 18 118/79 (92) 94 Room Air 08/27/21 16:52 36.9 98 20 158/91 (113) 93 Room Air 08/27/21 16:51 36.9 98 20 153/91 93 Room Air 08/27/21 16:46 Room Air 08/27/21 15:10 80 23 143/85 94 Nasal Cannula 2.00 08/27/21 14:58 94 18 153/100 Nasal Cannula 2.00 08/27/21 13:43 37.1 133/77 08/27/21 12:48 37.2 86 140/90 98 I & O 08/28/21 07:00 Intake Total 1470 ml Output Total 0 ml Balance 1470 ml Height & Weight Height: '" Weight: lbs. oz. kg; 26.44 BMI Method: General Appearance: No Apparent Distress, WD/WN, Other (sleeping soundly in bed, opens eyes when spoken to but very quickly goes back to sleep) HEENT: Moist Mucous Membranes; No Scleral Icterus (L), No Scleral Icterus (R) Neck: Normal Inspection, Supple Respiratory: Lungs Clear, No Accessory Muscle Use, No Respiratory Distress Cardiovascular: Regular Rate, Rhythm, No Murmur Capillary Refill: Less Than 3 Seconds Gastrointestinal: normal bowel sounds, soft; No distended; tenderness (Generalized and most intense in the right lower quadrant) Extremity: Normal Capillary Refill, No Calf Tenderness, No Pedal Edema Neurologic/Psychiatric: Other (arouses briefly to verbal stimuli) Skin: Normal Color, Warm/Dry Results Lab Laboratory Tests 08/27/21 09:35 08/28/21 04:40 Assessment/Plan Assessment/Plan (Tele-ICU Physician , consultation) Available chart/ vitals / labs / Images reviewed H&P is from ER notes Patient's information available about PMH, Shx, Fhx allergy reviewed in EMR. ROS as per chart and RN report Now in ICU, hemodynamically stable Video assessment done using teleICU camera, rest of exam as per RN Discussed with RN. Consultants: SX Hospital course: 08/27 61/M- Abdo. pain, R Lower Quadreant increased pain. Etoh Intoxication and w/d, daily use. A/P Abdominal pain. - as per sx consulted - CT scan - no acute process, mildly elev lipase -PPI Hypodense area of the liver, 1.5 cm - futire f/up as per PCP ETON abuse - CIWA , monitor, vitamins , precedex = CT with evidence liver cirrhosis. Lines : (Central Line Necessity Reviewed) [place]: OG: Nutrition: Analgesia: Anxiety/ delirium VTE Prophylaxis: lovemnox 40 qd Stress Ulcer Prophylaxis: ppi Plans in collaboration with bedside consultants and IM MDs. Discussed with RN to reach out if any questions or concerns A total of 25 minutes of critical care time was devoted to this patient today, required to treat and/or prevent further deterioration of critical care condition ( as above ) . MACK BARBOUR MD Aug 28, 2021 11:55
--- NOTE | 2021-08-28 12:12 | Diagnostic Imaging Report ---
PROCEDURE: CT abdomen and pelvis with and without contrast. TECHNIQUE: Precontrast acquisitions were acquired through the abdomen and pelvis. Multiple contiguous axial images were obtained through the abdomen and pelvis after the administration of intravenous contrast. Auto Exposure Controls were utilized during the CT exam to meet ALARA standards for radiation dose reduction. INDICATION: Abdominal pain and hepatitis. COMPARISON: Correlation is made with the prior CT from one day earlier. FINDINGS: Imaging through the lung bases does show subsegmental atelectasis in the right lower lobe. There is diffuse low density throughout the liver, consistent with hepatic steatosis. The low-density lesion in the right lobe of the liver measures 15 mm. This appears to be low-density on all sequences and may represent a cyst. This does not behave like a hemangioma. No other liver lesions are seen. There is vicarious excretion of contrast into the gallbladder. There is no biliary ductal dilatation. The pancreas and spleen are unremarkable. No adrenal mass is identified. The kidneys and bladder are unremarkable. The aorta is calcified but nonaneurysmal. No central retroperitoneal or mesenteric lymphadenopathy is seen. The small and large bowel loops are of normal caliber. There is no ascites. IMPRESSION: There is a low-density lesion in the right lobe of the liver which may represent a cyst. This does not have enhancement characteristics of a hemangioma. MRI with liver protocol may be useful for further evaluation. If no further imaging is performed, a short interval CT followup with repeat study in 3-6 months would be recommended to confirm stability. Dictated by: Dictated on workstation # [id number]
[2021-08-29] MEDS: D5 1/2 NS W/KCL 20 MEQ/L 1,000 ML IV SCH (03:15)
[2021-08-29 05:03] LABS: BASOPHILS % (AUTO) 1 % (0-10); EOSINOPHILS # (AUTO) 0.1 10^3/uL (0.0-0.3); EOSINOPHILS % (AUTO) 4 % (0-10); HEMATOCRIT 45 % (40-54); HEMOGLOBIN 15.3 g/dL (13.3-17.7); LYMPHOCYTES # (AUTO) 0.8 10^3/uL (1.0-4.0); LYMPHOCYTES % (AUTO) 23 % (12-44); MEAN CORPUSCULAR HEMOGLOBIN 33 pg (25-34); MEAN CORPUSCULAR HGB CONC 34 g/dL (32-36); MEAN CORPUSCULAR VOLUME 96 fL (80-99); MEAN PLATELET VOLUME 10.9 fL (9.0-12.2); MONOCYTES # (AUTO) 0.3 10^3/uL (0.0-1.0); MONOCYTES % (AUTO) 9 % (0-12); NEUTROPHILS # (AUTO) 2.4 10^3/uL (1.8-7.8); NEUTROPHILS % (AUTO) 64 % (42-75); PLATELET COUNT 132 10^3/uL (130-400); WHITE BLOOD COUNT 3.7 10^3/uL (4.3-11.0)
[2021-08-29 05:18] LABS: ALBUMIN 3.2 GM/DL (3.2-4.5); POTASSIUM 4.7 MMOL/L (3.6-5.0)
[2021-08-29 05:20] LABS: TOTAL PROTEIN 5.4 GM/DL (6.4-8.2)
[2021-08-29 05:22] LABS: BILIRUBIN,TOTAL 0.9 MG/DL (0.1-1.0)
[2021-08-29 05:24] LABS: CREATININE SERUM 0.72 MG/DL (0.60-1.30); PHOSPHORUS 2.4 MG/DL (2.3-4.7)
[2021-08-29 05:27] LABS: MAGNESIUM 2.2 MG/DL (1.6-2.4)
[2021-08-29] MEDS: POTASSIUM CL 10MEQ/50ML IVPB 50 ML IV SCH (05:44)
[2021-08-29] MEDS: KCL 20 MEQ TAB (K-DUR) PO SCH (05:45)
[2021-08-29] MEDS: MAGNESIUM 1 GM/100 ML IVPB 100 ML IV SCH (05:45)
[2021-08-29] MEDS: ENOXAPARIN 40 MG/0.4 ML (LOVENOX) SYR SQ SCH (07:46)
[2021-08-29] MEDS: PANTOPRAZOLE 40 MG (PROTONIX) VIAL IV SCH ×2 (07:46→21:25)
[2021-08-29] MEDS: FAMOTIDINE 20MG/2ML IV (PEPCID) IV SCH ×2 (07:46→21:25)
[2021-08-29] MEDS: THIAMINE INJECTION 100 MG, FOLIC ACID INJECTION 1 MG, MAGNESIUM SULFATE 2 GM, VITAMIN M... IV SCH ×5 (09:29)
[2021-08-29] MEDS: ACETAMINOPHEN 325 MG TABLET PO PRN (11:33)
--- NOTE | 2021-08-29 11:45 | Progress Note - Hospitalist ---
Subjective HPI/CC On Admission Date Seen by Provider: Aug 29, 2021 Time Seen by Provider: 07:55 Patient is 61-year-old male with past medical history of hepatitis C, alcohol abuse, GERD who presented to the emergency department due to bilateral lower abdominal pain. He is currently quite sedate and on a Precedex drip seco ndary to alcohol withdrawal and is unable to provide any history. All history is obtained from the records. Per the ER note his symptoms began yesterday after drinking quite heavily. He is unable to quantify how much he drinks. CT revealed possible 1.5 cm hepatic mass. His pain could not be controlled in the emergency room and he was admitted for observation due to intractable abdominal pain and surgical consultation. Overnight he developed with drawl symptoms with CIWA scores up to 19 and was transferred to the ICU for Precedex drip. Subjective/Events-last exam Pt reports feeling much better today. Does not recall much of yesterday. He states he normally drinks at least a pint a day and has withdrawn before but never that severe. Is interested in treatment. Objective Exam Vital Signs Vital Signs Date Time Temp Pulse Resp B/P (MAP) Pulse Ox O2 Delivery O2 Flow Rate FiO2 08/29/21 11:00 86 18 121/81 94 Room Air 08/29/21 08:00 36.4 08/29/21 02:38 2.00 Capillary Refill : Less Than 3 Seconds General Appearance: No Apparent Distress, WD/WN Respiratory: Lungs Clear, No Respiratory Distress Cardiovascular: Regular Rate, Rhythm, No Murmur Gastrointestinal: Normal Bowel Sounds, Non Tender, Soft Neurologic/Psychiatric: Alert, Oriented x3 Results/Procedures Lab Laboratory Tests 08/29/21 04:28 Patient resulted labs reviewed. Imaging: Reviewed Imaging Report Assessment/Plan Assessment and Plan Assess & Plan/Chief Complaint Intractable abdominal pain Surgery consulted, appreciate recs Repeat CT shows liver lesion still, recommends MRI or CT follow up in 3 months Will discussed patient preference with him tomorrow Continue pain regimen Alcohol abuse Alcohol withdrawal Drinks a pint daily CIWA protocol Precedex gtt for now- try to titrate off Banana bag Interested in treatment, professor of social work consulted If he remains stable off precedex can transfer to the floor this afternoon COPD No acute needs MAT protocol DVT ppx: Lovenox Diagnosis/Problems Diagnosis/Problems (1) Hepatitis (2) Alcohol withdrawal (3) COPD (chronic obstructive pulmonary disease) (4) Generalized abdominal pain Status: Acute (5) Alcohol dependence Status: Acute Qualifiers: Substance use status: unspecified alcohol-induced disorder Qualified Codes: F10.29 - Alcohol dependence with unspecified alcohol-induced disorder (6) Liver lesion Status: Acute (7) Alcohol intoxication Status: Acute COBY AVILES MD Aug 29, 2021 11:45
[2021-08-29 13:14] VITALS: BP 139/83
[2021-08-29] MEDS: LORazepam INJ 2 MG/ML (ATIVAN) VIAL IV PRN (18:11)
[2021-08-29] MEDS: RT-ALBUTEROL SULF 2.5 MG/3 ML PRE-MIX VIAL INH SCH (20:48)
[2021-08-30] MEDS: LORazepam 1 MG (ATIVAN) TAB PO PRN ×2 (04:19→07:42)
[2021-08-30] MEDS: RT-ALBUTEROL SULF 2.5 MG/3 ML PRE-MIX VIAL INH SCH ×2 (07:29→20:36)
[2021-08-30 08:00] LABS: HEMOGLOBIN 17.5 g/dL (13.3-17.7); MEAN CORPUSCULAR VOLUME 94 fL (80-99)
[2021-08-30 08:02] LABS: BASOPHILS % (AUTO) 0 % (0-10); EOSINOPHILS # (AUTO) 0.3 10^3/uL (0.0-0.3); EOSINOPHILS % (AUTO) 5 % (0-10); HEMATOCRIT 50 % (40-54); LYMPHOCYTES # (AUTO) 1.2 10^3/uL (1.0-4.0); LYMPHOCYTES % (AUTO) 22 % (12-44); MEAN CORPUSCULAR HEMOGLOBIN 33 pg (25-34); MEAN CORPUSCULAR HGB CONC 35 g/dL (32-36); MEAN PLATELET VOLUME 11.2 fL (9.0-12.2); MONOCYTES # (AUTO) 0.4 10^3/uL (0.0-1.0); MONOCYTES % (AUTO) 8 % (0-12); NEUTROPHILS # (AUTO) 3.5 10^3/uL (1.8-7.8); NEUTROPHILS % (AUTO) 65 % (42-75); PLATELET COUNT 139 10^3/uL (130-400); WHITE BLOOD COUNT 5.4 10^3/uL (4.3-11.0)
[2021-08-30] MEDS: PANTOPRAZOLE 40 MG (PROTONIX) VIAL IV SCH ×2 (08:25→19:33)
[2021-08-30] MEDS: ENOXAPARIN 40 MG/0.4 ML (LOVENOX) SYR SQ SCH (08:26)
[2021-08-30] MEDS: FAMOTIDINE 20MG/2ML IV (PEPCID) IV SCH ×2 (08:26→19:33)
[2021-08-30 08:38] LABS: ALBUMIN 4.4 GM/DL (3.2-4.5); CALCIUM 9.5 MG/DL (8.5-10.1); CREATININE SERUM 0.78 MG/DL (0.60-1.30); MAGNESIUM 2.4 MG/DL (1.6-2.4); PHOSPHORUS 3.7 MG/DL (2.3-4.7); POTASSIUM 4.2 MMOL/L (3.6-5.0); TOTAL PROTEIN 7.7 GM/DL (6.4-8.2)
--- NOTE | 2021-08-30 10:10 | Progress Note - Hospitalist ---
Subjective HPI/CC On Admission Date Seen by Provider: Aug 30, 2021 Time Seen by Provider: 10:07 Patient is 61-year-old male with past medical history of hepatitis C, alcohol abuse, GERD who presented to the emergency department due to bilateral lower abdominal pain. He is currently quite sedate and on a Precedex drip sec ondary to alcohol withdrawal and is unable to provide any history. All history is obtained from the records. Per the ER note his symptoms began yesterday after drinking quite heavily. He is unable to quantify how much he drinks. CT revealed possible 1.5 cm hepatic mass. His pain could not be controlled in the emergency room and he was admitted for observation due to intractable abdominal pain and surgical consultation. Overnight he developed with drawl symptoms with CIWA scores up to 19 and was transferred to the ICU for Precedex drip. Subjective/Events-last exam Pt reports feeling better today though still having abd pain. Objective Exam Vital Signs Vital Signs Date Time Temp Pulse Resp B/P (MAP) Pulse Ox O2 Delivery O2 Flow Rate FiO2 08/30/21 08:00 Room Air 08/30/21 07:55 36.3 115 18 175/95 97 08/30/21 00:22 Capillary Refill : Less Than 3 Seconds General Appearance: No Apparent Distress, Chronically ill Cardiovascular: Regular Rate, Rhythm, No Murmur Neurologic/Psychiatric: Alert, Oriented x3 Results/Procedures Lab Laboratory Tests 08/30/21 07:16 Patient resulted labs reviewed. Imaging: Reviewed Imaging Report Assessment/Plan Assessment and Plan Assess & Plan/Chief Complaint Intractable abdominal pain Surgery consulted, appreciate recs Repeat CT shows liver lesion still, recommends MRI or CT follow up in 3 months- need outpatient follow Continue pain regimen Pain improved, follow up with Dr Peter as an outpatient for EGD Alcohol abuse Alcohol withdrawal Drinks a pint daily CIWA protocol Banana bag Interested in treatment, social work nurse consulted COPD No acute needs MAT protocol DVT ppx: Lovenox Diagnosis/Problems Diagnosis/Problems (1) Hepatitis (2) Alcohol withdrawal (3) COPD (chronic obstructive pulmonary disease) (4) Generalized abdominal pain Status: Acute (5) Alcohol dependence Status: Acute Qualifiers: Substance use status: unspecified alcohol-induced disorder Qualified Codes: F10.29 - Alcohol dependence with unspecified alcohol-induced disorder (6) Liver lesion Status: Acute (7) Alcohol intoxication Status: Acute COBY AVILES MD Aug 30, 2021 10:10
[2021-08-30] MEDS: LORazepam INJ 2 MG/ML (ATIVAN) VIAL IV PRN ×3 (16:19→23:52)
[2021-08-30] MEDS: ACETAMINOPHEN 325 MG TABLET PO PRN (23:54)
[2021-08-31 06:03] LABS: BASOPHILS % (AUTO) 0 % (0-10); EOSINOPHILS # (AUTO) 0.5 10^3/uL (0.0-0.3); EOSINOPHILS % (AUTO) 8 % (0-10); HEMATOCRIT 51 % (40-54); LYMPHOCYTES # (AUTO) 1.5 10^3/uL (1.0-4.0); LYMPHOCYTES % (AUTO) 23 % (12-44); MEAN CORPUSCULAR HEMOGLOBIN 33 pg (25-34); MEAN CORPUSCULAR HGB CONC 35 g/dL (32-36); MEAN CORPUSCULAR VOLUME 94 fL (80-99); MEAN PLATELET VOLUME 11.4 fL (9.0-12.2); MONOCYTES # (AUTO) 0.6 10^3/uL (0.0-1.0); MONOCYTES % (AUTO) 9 % (0-12); NEUTROPHILS % (AUTO) 60 % (42-75); PLATELET COUNT 173 10^3/uL (130-400); WHITE BLOOD COUNT 6.7 10^3/uL (4.3-11.0)
[2021-08-31 06:10] LABS: ALBUMIN 4.3 GM/DL (3.2-4.5)
[2021-08-31 06:11] LABS: POTASSIUM 4.3 MMOL/L (3.6-5.0)
[2021-08-31 06:12] LABS: CALCIUM 9.5 MG/DL (8.5-10.1)
[2021-08-31 06:13] LABS: TOTAL PROTEIN 7.6 GM/DL (6.4-8.2)
[2021-08-31 06:15] LABS: BILIRUBIN,TOTAL 1.2 MG/DL (0.1-1.0)
[2021-08-31 06:16] LABS: PHOSPHORUS 3.9 MG/DL (2.3-4.7)
[2021-08-31 06:17] LABS: CREATININE SERUM 0.8 MG/DL (0.60-1.30)
[2021-08-31] MEDS: PANTOPRAZOLE 40 MG (PROTONIX) VIAL IV SCH (08:09)
[2021-08-31] MEDS: ENOXAPARIN 40 MG/0.4 ML (LOVENOX) SYR SQ SCH (08:09)
[2021-08-31] MEDS: FAMOTIDINE 20MG/2ML IV (PEPCID) IV SCH (08:09)
[2021-08-31] MEDS: RT-ALBUTEROL SULF 2.5 MG/3 ML PRE-MIX VIAL INH SCH (08:36)
[2021-08-31] MEDS ORDERED: PANT40SU PO (08:40)
--- NOTE | 2021-08-31 08:43 | Discharge Inst-Simple/Standard ---
Discharge Inst-Standard Discharge Medications New, Converted or Re-Newed RX: Transmitted to Pharmacy Patient Instructions/Follow Up Plan of Care/Instructions/FU: Please continue to take your medications as written. Please Follow up with your primary care doctor and Dr Peter to follow up this hospital stay. You will need another CT of your abdomen in 3 months that your primary care doctor can arrange. Please continue to work on cutting back on your alcohol use. Activity as Tolerated: Yes Discharge Diet: Avoid Fatty Foods Return to The Hospital For: Chest pain, abdominal pain, shortness of breath, weakness, fever, if you feel you are getting worse. COBY AVILES MD Aug 31, 2021 08:43
[2021-08-31] MEDS ORDERED: PANT40TA2 PO (10:12)
--- NOTE | 2021-08-31 10:13 | Discharge Summary ---
Diagnosis/Chief Complaint Date of Admission Aug 28, 2021 at 13:21 Date of Discharge Discharge Date: Aug 31, 2021 Admission Diagnosis Intractable abdominal pain Primary Care No,Local Physician Discharge Diagnosis (1) Hepatitis (2) Alcohol withdrawal (3) COPD (chronic obstructive pulmonary disease) (4) Generalized abdominal pain Status: Acute (5) Alcohol dependence Status: Acute (6) Liver lesion Status: Acute (7) Alcohol intoxication Status: Acute Discharge Summary Procedures/Consulations Dr Peter- Surgery Discharge Physical Exam Allergies: Coded Allergies: No Known Drug Allergies (Unverified , 10/11/19) Vitals & I&Os Vital Signs Date Time Temp Pulse Resp B/P (MAP) Pulse Ox O2 Delivery O2 Flow Rate FiO2 08/31/21 08:36 94 Room Air 08/31/21 08:23 36.2 97 18 130/80 08/30/21 00:22 General Appearance: No Apparent Distress, WD/WN Respiratory: Lungs Clear, No Respiratory Distress Cardiovascular: Regular Rate, Rhythm, No Murmur Neurologic/Psychiatric: Alert, Oriented x3 Hospital Course Pt was admitted with intractable abdominal pain. He drinks a pint of alcohol per day and underwent withdrawal while he was here but improved with treatment with precedex and ativan. His abdominal pain was improved with protonix. Of note imaging did reveal a liver lesion. After discussion with the patient regarding this and how to proceed with follow up he was advised to get a CT in 3 months and was referred to [facility] and to assist with continued alcohol cessation. He verbalized understanding of this and the importance of follow up. He was seen by surgery as well while inpatient. Dr Peter recommended outpatient follow up and this appointment was arranged as well. He was discharged home in stable and improved condition. Labs (last 24 hrs) Laboratory Tests 08/31/21 05:38: White Blood Count 6.7, Red Blood Count 5.45, Hemoglobin 18.0H, Hematocrit 51, Mean Corpuscular Volume 94, Mean Corpuscular Hemoglobin 33, Mean Corpuscular Hemoglobin Concent 35, Red Cell Distribution Width 12.3, Platelet Count 173, Mean Platelet Volume 11.4, Immature Granulocyte % (Auto) 0, Neutrophils (%) (Auto) 60, Lymphocytes (%) (Auto) 23, Monocytes (%) (Auto) 9, Eosinophils (%) (Auto) 8, Basophils (%) (Auto) 0, Neutrophils # (Auto) 4.0, Lymphocytes # (Auto) 1.5, Monocytes # (Auto) 0.6, Eosinophils # (Auto) 0.5H, Basophils # (Auto) 0.0, Immature Granulocyte # (Auto) 0.0, Sodium Level 136, Potassium Level 4.3, Chloride Level 102, Carbon Dioxide Level 21, Anion Gap 13, Blood Urea Nitrogen 8, Creatinine 0.80, Estimat Glomerular Filtration Rate 98, BUN/Creatinine Ratio 10, Glucose Level 114H, Calcium Level 9.5, Corrected Calcium 9.3, Phosphorus Level 3.9, Magnesium Level 2.0, Total Bilirubin 1.2H, Aspartate Amino Transf (AST/SGOT) 76H, Alanine Aminotransferase (ALT/SGPT) 55, Alkaline Phosphatase 64, Total Protein 7.6, Albumin 4.3 Microbiology 08/28/21 MRSA Screen - Final, Complete MRSA not isolated Patient resulted labs reviewed. Pending Labs Imaging: Reviewed Imaging Report Discussion & Recommendations Discharge Planning: >30 minutes discharge planning Discharge Home Medications: Active Scripts Active Protonix (Pantoprazole Sodium) 40 Mg Tablet.dr 40 Mg PO DAILY 30 Days Instructions to patient/family Please see electronic discharge instructions given to patient. Problem Qualifiers (1) Alcohol dependence: Substance use status: unspecified alcohol-induced disorder Qualified Codes: F10.29 - Alcohol dependence with unspecified alcohol-induced disorder COBY AVILES MD Aug 31, 2021 10:13
--- NOTE | 2021-09-04 13:42 | Physician Query Clarification ---
PQ-Further Specificity Admission/Discharge Admission Date: Aug 28, 2021 at 13:21 Discharge Date: Aug 31, 2021 at 10:50 Dr. Marks, The medical record reflects the following clinical scenario: History/Risk Factors: alcohol dependence, cirrhosis liver, viral hepatitis C, emphysema, homeless Clinical Findings: CT Abd - Hypodense appearance of the liver with associated nodular contour. This suggests possible underlying chronic liver disease and cirrhosis. bennett lower quadrant abdominal pain Treatment: IVP Fentanyl, IVP Morphine, IVP Zofran, IV Protonix Question: Can you further specify the type of hepatitis per the clinical indicators above? Please document a response in the Progress Notes or Discharge Summary. 1. alcoholic hepatitis 2. viral hepatitis type C 3. acute hepatitis undetermined etiology 4. Other, with explanation of the clinical findings. 5. Clinically undetermined, no explanation for the clinical findings. PHYSICIAN RESPONSE Can you specify per above: 1 Please remember a lack of response to the above will prompt a phone page by CD[facility]/Coding staff. In responding to this query, please exercise your independent professional judgment. The purpose of this communication is to more accurately reflect the complexity of your patients condition. The fact that a question is asked does not imply that any particular answer is desired or expected. Thank you for your timely response to this clarification. Requestors name: Enedina THIS PHYSICIAN QUERY FORM IS A PERMANENT PART OF THE MEDICAL RECORD ENEDINA PERES Sep 04, 2021 13:42 COBY MARKS MD Sep 06, 2021 11:13
--- NOTE | 2021-09-04 13:45 | Physician Query Clarification ---
PQ-Further Specificity Admission/Discharge Admission Date: Aug 28, 2021 at 13:21 Discharge Date: Aug 31, 2021 at 10:50 Dr. Marks, The medical record reflects the following clinical scenario: History/Risk Factors: alcohol dependence, cirrhosis liver, viral hepatitis C, emphysema, homeless Clinical Findings: CT Abd - Hypodense appearance of the liver with associated nodular contour. This suggests possible underlying chronic liver disease and cirrhosis. bennett lower quadrant abdominal pain Treatment: IVP Fentanyl, IVP Morphine, IVP Zofran, IV Protonix Question: Can you further specify type of cirrhosis per the clinical indicators above? Please document a response in the Progress Notes or Discharge Summary. 1. alcoholic liver cirrhosis 2. liver cirrhosis nos 3. Other, with explanation of the clinical findings. 4. Clinically undetermined, no explanation for the clinical findings. PHYSICIAN RESPONSE Can you specify per above: 1 Please remember a lack of response to the above will prompt a phone page by CD I/Coding staff. In responding to this query, please exercise your independent professional judgment. The purpose of this communication is to more accurately reflect the complexity of your patients condition. The fact that a question is asked does not imply that any particular answer is desired or expected. Thank you for your timely response to this clarification. Requestors name: Enedina THIS PHYSICIAN QUERY FORM IS A PERMANENT PART OF THE MEDICAL RECORD ENEDINA PERES Sep 04, 2021 13:45 COBY MARKS MD Sep 06, 2021 11:12
== END 2021-08-31 10:50 | disposition home or self-care (01) | DRG 433 ==
LOC: EDUNIT# 09:17 → ER 09:18 → 4TH 14:35 → ICU 08-28 03:19 → OBSVTOIN 08-28 13:21 → 4TH 08-29 16:55
PROVIDERS: ADMIT Family Medicine; ATTEND Family Medicine
DX: K70.10 Alcoholic hepatitis without ascites (principal); F10.239 Alcohol dependence with withdrawal, unspecified; F10.229 Alcohol dependence with intoxication, unspecified; K70.30 Alcoholic cirrhosis of liver without ascites; B19.20 Unspecified viral hepatitis C without hepatic coma; Y90.6 Blood alcohol level of 120-199 mg/100 ml; G31.2 Degeneration of nervous system due to alcohol; K76.9 Liver disease, unspecified; J43.9 Emphysema, unspecified; K21.9 Gastro-esophageal reflux disease without esophagitis; F17.210 Nicotine dependence, cigarettes, uncomplicated; F17.220 Nicotine dependence, chewing tobacco, uncomplicated; Z59.01 Sheltered homelessness
CPT/HCPCS: 36415; 74177; 74178; 80053; 80306; 80320; 81000; 83690; 83735; 84100; 85025; 85610; 86141; 87081; 94640; 94760; 96374; 96375; G0378

== ENCOUNTER 2021-09-02 13:53 | Emergency (ER) | payer SELFPAY ==
[~2021-09-02] VITALS: Ht 175 cm; Wt 77.0 kg
[~2021-09-02 13:53] MED LIST changes: +PANT40SU PO; +PANT40TA2 PO
[2021-09-02 14:11] LABS: MEAN CORPUSCULAR VOLUME 95 fL (80-99); MEAN PLATELET VOLUME 10.8 fL (9.0-12.2)
[2021-09-02 14:13] LABS: BASOPHILS % (AUTO) 0 % (0-10); EOSINOPHILS # (AUTO) 0.1 10^3/uL (0.0-0.3); EOSINOPHILS % (AUTO) 1 % (0-10); HEMATOCRIT 47 % (40-54); HEMOGLOBIN 16.2 g/dL (13.3-17.7); LYMPHOCYTES # (AUTO) 1.2 10^3/uL (1.0-4.0); LYMPHOCYTES % (AUTO) 18 % (12-44); MEAN CORPUSCULAR HEMOGLOBIN 33 pg (25-34); MEAN CORPUSCULAR HGB CONC 35 g/dL (32-36); MONOCYTES # (AUTO) 0.6 10^3/uL (0.0-1.0); MONOCYTES % (AUTO) 9 % (0-12); NEUTROPHILS # (AUTO) 4.7 10^3/uL (1.8-7.8); NEUTROPHILS % (AUTO) 72 % (42-75); PLATELET COUNT 140 10^3/uL (130-400); WHITE BLOOD COUNT 6.6 10^3/uL (4.3-11.0)
[2021-09-02] MEDS ORDERED: ANTACID SUSP 30 ML UDC (MYLANTA) PO ONE (14:15)
[2021-09-02] MEDS ORDERED: LIDOCAINE 2% VISCOUS 15 ML UDC PO ONE (14:15)
[2021-09-02] MEDS ORDERED: fentaNYL INJ 100 MCG/2 ML AMP IVP ONE (14:15)
[2021-09-02 14:24] LABS: ALBUMIN 4.3 GM/DL (3.2-4.5); POTASSIUM 3.6 MMOL/L (3.6-5.0)
[2021-09-02 14:25] LABS: CALCIUM 9.1 MG/DL (8.5-10.1)
--- NOTE | 2021-09-02 14:25 | ED GI ---
General Chief Complaint: Abdominal/GI Problems Stated Complaint: RUQ PAIN Nursing Triage Note: PT ARRIVED PER EMS, PT CO OF ABD PAIN 06/30. PT WAS RELEASED FROM HOSPITAL ON 08/31/21 FOR SAME CO. PT STATES HAS DRANK A PT OF WHISKEY TODAY. PT HAS SL IN L AC #20 BY EMS. PT IS CURRENTLY HOMELESS Source of Information: Patient Exam Limitations: No Limitations History of Present Illness Date Seen by Provider: Sep 02, 2021 Time Seen by Provider: 14:23 Initial Comments To ER with reports of diffuse abdominal pain rated 9 out of 10. He was picked up by EMS from the [facility] He was released from the hospital yesterday for the same. He drank a pint of whiskey today. He is homeless. Timing/Duration: 12 Hours Severity/Quality: Cramping Location: Generalized Abdomen Radiation: No Radiation Activities at Onset: None Allergies and Home Medications Allergies Coded Allergies: No Known Drug Allergies (Unverified , 10/11/19) Patient Home Medication List Home Medication List Reviewed: Yes Pantoprazole Sodium (Protonix) 40 Mg Tablet.dr, 40 MG PO DAILY Prescribed by: COBY AVILES on 08/31/21 1012 Discontinued Medications Cephalexin (Keflex) 500 Mg Capsule, 500 MG PO QID Discontinued Reason: No Longer Taking Prescribed by: NADIRA WASSERMAN on 10/18/19 0607 Review of Systems Review of Systems Constitutional: see HPI EENTM: No Symptoms Reported Respiratory: No Symptoms Reported Cardiovascular: No Symptoms Reported Gastrointestinal: See HPI, Abdominal Pain Genitourinary: No Symptoms Reported Musculoskeletal: no symptoms reported Skin: no symptoms reported Psychiatric/Neurological: No Symptoms Reported Endocrine: No Symptoms Reported Hematologic/Lymphatic: No Symptoms Reported Past Abgvtuk-Grizdz-Sdfkdd Hx Patient Social History Tobacco Use?: Yes Tobacco type used: Cigarettes Smoking Status: Current Someday Smoker Smokeless Tobacco Frequency: Current Everyday User Substance use?: No Alcohol Use?: Yes Alcohol type: Hard Liquor Alcohol Frequency: Daily Pt feels they are or have been: No Immunizations Up To Date Tetanus Booster (TDap): Unknown PED Vaccines UTD: Yes First/Initial COVID19 Vaccinat: 0 Second COVID19 Vaccination Luis: 0 Third COVID19 Vaccination Date: 0 Seasonal Allergies Seasonal Allergies: No Past Medical History Surgery/Hospitalization HX: Liver biopsy Surgeries: No Respiratory: Yes COPD, Emphysema Cardiac: No Neurological: No Genitourinary: No Gastrointestinal: No Hepatitis Musculoskeletal: No Endocrine: No HEENT: No Cancer: No Psychosocial: Yes Integumentary: Yes Recent Skin Changes Blood Disorders: No Adverse Reaction/Blood Tranf: No Family Medical History No Pertinent Family Hx Physical Exam Vital Signs Vital Signs - First Documented 09/02/21 14:00 Temp 36.8 Pulse 81 Resp 18 B/P (MAP) 140/87 (104) Pulse Ox 99 Capillary Refill : Less Than 3 Seconds Height/Weight/BMI Height: '" Weight: lbs. oz. kg; 25.00 BMI Method: General Appearance: WD/WN, no apparent distress HEENT: PERRL/EOMI, normal ENT inspection Respiratory: no respiratory distress, no accessory muscle use Cardiovascular: regular rate, rhythm, no murmur Gastrointestinal: normal bowel sounds, soft, tenderness Extremities: normal range of motion, non-tender Neurologic/Psychiatric: alert, normal mood/affect, oriented x 3 Skin: normal color, warm/dry Progress/Results/Core Measures Results/Orders Lab Results Laboratory Tests Test 09/02/21 14:02 Range/Units White Blood Count 6.6 4.3-11.0 10^3/uL Red Blood Count 4.94 4.30-5.52 10^6/uL Hemoglobin 16.2 13.3-17.7 g/dL Hematocrit 47 40-54 % Mean Corpuscular Volume 95 80-99 fL Mean Corpuscular Hemoglobin 33 25-34 pg Mean Corpuscular Hemoglobin Concent 35 32-36 g/dL Red Cell Distribution Width 12.4 10.0-14.5 % Platelet Count 140 130-400 10^3/uL Mean Platelet Volume 10.8 9.0-12.2 fL Immature Granulocyte % (Auto) 0 % Neutrophils (%) (Auto) 72 42-75 % Lymphocytes (%) (Auto) 18 12-44 % Monocytes (%) (Auto) 9 0-12 % Eosinophils (%) (Auto) 1 0-10 % Basophils (%) (Auto) 0 0-10 % Neutrophils # (Auto) 4.7 1.8-7.8 10^3/uL Lymphocytes # (Auto) 1.2 1.0-4.0 10^3/uL Monocytes # (Auto) 0.6 0.0-1.0 10^3/uL Eosinophils # (Auto) 0.1 0.0-0.3 10^3/uL Basophils # (Auto) 0.0 0.0-0.1 10^3/uL Immature Granulocyte # (Auto) 0.0 0.0-0.1 10^3/uL Percent Immature Platelet Fraction 7.5 0.0-7.6 % Sodium Level 137 135-145 MMOL/L Potassium Level 3.6 3.6-5.0 MMOL/L Chloride Level 100 98-107 MMOL/L Carbon Dioxide Level 22 21-32 MMOL/L Anion Gap 15 H 5-14 MMOL/L Blood Urea Nitrogen 6 L 7-18 MG/DL Creatinine 0.70 0.60-1.30 MG/DL Estimat Glomerular Filtration Rate 114 BUN/Creatinine Ratio 9 Glucose Level 89 70-105 MG/DL Calcium Level 9.1 8.5-10.1 MG/DL Corrected Calcium 8.9 8.5-10.1 MG/DL Total Bilirubin 0.9 0.1-1.0 MG/DL Aspartate Amino Transf (AST/SGOT) 149 H 5-34 U/L Alanine Aminotransferase (ALT/SGPT) 106 H 0-55 U/L Alkaline Phosphatase 48 40-136 U/L Total Protein 7.3 6.4-8.2 GM/DL Albumin 4.3 3.2-4.5 GM/DL Lipase 46 8-78 U/L Serum Alcohol 30 H <10 MG/DL My Orders Orders - JAMAR DE LUNA APRN Lipase (09/02/21 14:03) Cbc With Automated Diff (09/02/21 14:03) Comprehensive Metabolic Panel (09/02/21 14:03) Ed Iv/Invasive Line Start (09/02/21 14:03) Antacid Suspension (Mylanta Suspension (09/02/21 14:15) Lidocaine 2% Viscous 15 Ml (Xylocaine Vi (09/02/21 14:15) Fentanyl Inj (Sublimaze Injection) (09/02/21 14:15) Alcohol (09/02/21 14:03) Medications Given in ED Current Medications Medications Dose Ordered Sig/[place] Route Start Time Stop Time Status Last Admin Dose Admin Al Hydrox/Mg Hydrox/Simethicone 30 ml ONCE ONCE PO 09/02/21 14:15 09/02/21 14:16 DC 09/02/21 14:26 30 ML Fentanyl Citrate 50 mcg ONCE ONCE IVP 09/02/21 14:15 09/02/21 14:16 DC 09/02/21 14:26 50 MCG Lidocaine HCl 15 ml ONCE ONCE PO 09/02/21 14:15 09/02/21 14:16 DC 09/02/21 14:26 15 ML Vital Signs/I&O 09/02/21 14:00 Temp 36.8 Pulse 81 Resp 18 B/P (MAP) 140/87 (104) Pulse Ox 99 Blood Pressure Mean: 104 Departure Impression Primary Impression: Gastritis Disposition: HOME, SELF-CARE Condition: Stable Departure-Patient Inst. Decision time for Depature: 14:41 Referrals: NO,LOCAL PHYSICIAN (PCP/Family) Primary Care Physician Patient Instructions: Gastritis Add. Discharge Instructions: 1. Return to ER for any concerns 2. Follow-up with your doctor next week All discharge instructions reviewed with patient and/or family. Voiced understanding. JAMAR DE LUNA LEASE OUT WORKER Sep 02, 2021 14:25
[2021-09-02 14:27] LABS: TOTAL PROTEIN 7.3 GM/DL (6.4-8.2)
[2021-09-02 14:28] LABS: BILIRUBIN,TOTAL 0.9 MG/DL (0.1-1.0)
[2021-09-02 14:30] LABS: CREATININE SERUM 0.7 MG/DL (0.60-1.30)
[2021-09-02 14:53] VITALS: BP 138/74
== END 2021-09-02 14:57 | disposition home or self-care (01) ==
LOC: EDUNIT# 13:53 → ER 13:59
DX: K29.70 Gastritis, unspecified, without bleeding (principal); J44.9 Chronic obstructive pulmonary disease, unspecified; F17.210 Nicotine dependence, cigarettes, uncomplicated
CPT/HCPCS: 80053; 83690; 85025; 99284; G0480; 36415; 80320